=== PATIENT | male | born 1970 | race Caucasian/White ===

== ENCOUNTER 2022-03-28 13:44 | Observation (INO) ==
[2022-03-28] MEDS ORDERED: ASPIRIN 325 MG TABLET PO STA (15:24)
[2022-03-28] MEDS ORDERED: NITROGLYCERIN 2% OINT 1 INCH/GM PACK TOP STA (15:29)
[2022-03-28] MEDS ORDERED: METOPROLOL TARTRATE 5 MG/5 ML VIAL IV STA (15:29)
[2022-03-28] MEDS ORDERED: ENOXAPARIN 100 MG/ML SYRINGE SUBCUT STA (15:29)
[2022-03-28 15:37] LABS: Basophils # 0.1 10*3/uL (0.0-0.2); Basophils % 0.5 % (0.0-0.8); Eosinophils # 0.1 10*3/uL (0.0-0.87); Eosinophils % 1.4 % (0.00-10.9); Hematocrit 52.3 VOL% (42.0-52.0); Hemoglobin 17.8 GM/DL (14.0-18.0); Immature Granulocytes % 0.4 %; Immature Granulocytes Absolute 0.04 #; Lymphocytes % 20.4 % (21.2-54.2); Mean Corpuscular Volume 86.9 FL (87-102); Mean Platelet Volume 11.3 FL (9.6-12.0); Monocytes # 0.8 10*3/uL (0.11-0.8); Neutrophils % 69.3 % (38.7-73.9); Platelet Count 221 T/CUMM (130-400); Red Blood Count 6.02 MC/CUMM (3.8-5.5); Red Cell Distribution Width 13.3 % (9.3-17.3); White Blood Count 9.6 T/CUMM (4-12)
[2022-03-28 15:49] LABS: Albumin 4.1 G/DL (3.4-5.0); Bilirubin,Total 0.8 MG/DL (0.20-1.00); Calcium 8.7 MG/DL (8.5-10.1); Osmolality,Calculated 272.8 MOS/KG (273-304); Potassium 3.8 MMOL/L (3.5-5.1)
[2022-03-28] MEDS ORDERED: NICOTINE 21 MG/24 HR PATCH TRANSDERM PRN (16:55)
[2022-03-28] MEDS ORDERED: ONDANSETRON 4 MG/2 ML VIAL IV PRN (16:55)
[2022-03-28] MEDS ORDERED: ACETAMINOPHEN 325 MG TABLET PO PRN (16:55)
[2022-03-28] MEDS ORDERED: ENOXAPARIN 40 MG/0.4 ML SYRINGE SUBCUT SCH (17:00)
[2022-03-28] MEDS ORDERED: cefTRIAXone 1,000 MG in SODIUM CHLORIDE 0.9% 100 ML IV SCH (17:30)
[2022-03-28] MEDS ORDERED: AZITHROMYCIN INJ 500 MG in SODIUM CHLORIDE 0.9% 250 ML IV SCH (18:00)
[2022-03-28 18:32] LABS: INR 0.9; PT Patient Result 10.4 SECS (10.1-12.1)
[2022-03-29 05:01] LABS: Basophils # 0.1 10*3/uL (0.0-0.2); Basophils % 0.6 % (0.0-0.8); Eosinophils # 0.2 10*3/uL (0.0-0.87); Eosinophils % 1.9 % (0.00-10.9); Hematocrit 47.8 VOL% (42.0-52.0); Hemoglobin 16.2 GM/DL (14.0-18.0); Immature Granulocytes % 0.4 %; Immature Granulocytes Absolute 0.04 #; Lymphocytes # 2.2 10*3/uL (1.4-4.0); Mean Corpuscular HGB Conc 33.9 GM/DL (32-36); Mean Corpuscular Volume 88.5 FL (87-102); Mean Platelet Volume 11.3 FL (9.6-12.0); Monocytes # 1.2 10*3/uL (0.11-0.8); Monocytes % 11.9 % (1.7-12.7); Neutrophils % 63.2 % (38.7-73.9); Platelet Count 195 T/CUMM (130-400); Red Cell Distribution Width 13.4 % (9.3-17.3)
[2022-03-29 05:36] LABS: Albumin 3.4 G/DL (3.4-5.0); Bilirubin,Total 0.4 MG/DL (0.20-1.00); Osmolality,Calculated 279.4 MOS/KG (273-304); Potassium 3.8 MMOL/L (3.5-5.1); Risk Ratio 6.67; Thyroid Stimulating Hormone 3.05 uIU/ml (0.358-3.74); Total Protein 7.1 G/DL (6.4-8.2); VLDL Cholesterol 38.2 MG/DL
[2022-03-29] MEDS ORDERED: ENOXAPARIN 40 MG/0.4 ML SYRINGE SUBCUT SCH (09:00)
[2022-03-29] MEDS: ASPIRIN CHEW 81 MG TABLET PO SCH (09:19)
[2022-03-29] MEDS ORDERED: DIAZEPAM 5 MG TABLET PO ONE (10:30)
[2022-03-29] MEDS ORDERED: DEXTROSE 5% NACL 0.45% 1,000 ML IV SCH (10:30)
[2022-03-29] MEDS ORDERED: diphenhydrAMINE CAP 25 MG CAPSULE PO ONE (10:30)
[2022-03-29] MEDS ORDERED: HEPARIN/NACL 0.9% 2 UNITS/ML 2,000 UNIT/1,000 ML BAG IV ONE (11:54)
[2022-03-29] MEDS ORDERED: VERAPAMIL 5 MG/2 ML VIAL ONE (12:05)
[2022-03-29] MEDS ORDERED: NITROGLYCERIN DRIP 50 MG/250 ML BOTTLE IV ONE (12:05)
[2022-03-29] MEDS ORDERED: fentaNYL 100 MCG/2 ML VIAL ONE (12:53)
[2022-03-29] MEDS ORDERED: MIDAZOLAM 2 MG/2 ML VIAL ONE (12:53)
[2022-03-29] MEDS ORDERED: ENOXAPARIN 60 MG/0.6 ML SYRINGE ONE (13:06)
[2022-03-29] MEDS: ISOSORBIDE MONONITRATE 30 MG TABLET PO SCH (16:32)
[2022-03-29] MEDS ORDERED: lisinopriL 20 MG TABLET PO SCH (17:30)
[2022-03-29] MEDS ORDERED: ATORVASTATIN 40 MG TABLET PO SCH (21:00)
[2022-03-29] MEDS: ATORVASTATIN 40 MG TABLET PO SCH (21:56)
[2022-03-29] MEDS: carvediloL 6.25 MG TABLET PO SCH (21:56)
[2022-03-29] MEDS: ENOXAPARIN 100 MG/ML SYRINGE SUBCUT SCH (21:57)
[2022-03-30 05:00] LABS: Basophils % 0.4 % (0.0-0.8); Eosinophils # 0.1 10*3/uL (0.0-0.87); Eosinophils % 1.2 % (0.00-10.9); Hematocrit 47.1 VOL% (42.0-52.0); Hemoglobin 15.7 GM/DL (14.0-18.0); Immature Granulocytes % 0.4 %; Immature Granulocytes Absolute 0.04 #; Lymphocytes # 2.4 10*3/uL (1.4-4.0); Mean Corpuscular HGB Conc 33.3 GM/DL (32-36); Mean Corpuscular Volume 87.4 FL (87-102); Mean Platelet Volume 11.2 FL (9.6-12.0); Monocytes # 1.2 10*3/uL (0.11-0.8); Monocytes % 11.9 % (1.7-12.7); Neutrophils % 62.1 % (38.7-73.9); Platelet Count 208 T/CUMM (130-400); Red Blood Count 5.39 MC/CUMM (3.8-5.5); Red Cell Distribution Width 13.4 % (9.3-17.3); White Blood Count 10.1 T/CUMM (4-12)
[2022-03-30 05:25] LABS: Calcium 8.7 MG/DL (8.5-10.1); Osmolality,Calculated 273.7 MOS/KG (273-304); Potassium 3.9 MMOL/L (3.5-5.1)
[2022-03-30] MEDS ORDERED: NITROGLYCERIN SL 0.4 MG TABLET SL PRN (08:15)
[2022-03-30] MEDS: carvediloL 6.25 MG TABLET PO SCH ×2 (09:37→21:03)
[2022-03-30] MEDS: ASPIRIN CHEW 81 MG TABLET PO SCH (09:37)
[2022-03-30] MEDS: VALSARTAN 160 MG TABLET PO SCH (09:37)
[2022-03-30] MEDS: ISOSORBIDE MONONITRATE 30 MG TABLET PO SCH (09:37)
[2022-03-30] MEDS: ENOXAPARIN 100 MG/ML SYRINGE SUBCUT SCH ×2 (09:38→21:03)
[2022-03-30] MEDS: SPIRONOLACTONE 25 MG TABLET PO SCH (11:32)
[2022-03-30] MEDS: ATORVASTATIN 40 MG TABLET PO SCH (21:03)
[2022-03-31 04:47] LABS: Basophils # 0.1 10*3/uL (0.0-0.2); Basophils % 0.7 % (0.0-0.8); Eosinophils # 0.3 10*3/uL (0.0-0.87); Hematocrit 49.3 VOL% (42.0-52.0); Hemoglobin 16.7 GM/DL (14.0-18.0); Immature Granulocytes % 0.5 %; Immature Granulocytes Absolute 0.04 #; Lymphocytes # 2.6 10*3/uL (1.4-4.0); Lymphocytes % 29.2 % (21.2-54.2); Mean Corpuscular HGB Conc 33.9 GM/DL (32-36); Mean Corpuscular Volume 87.4 FL (87-102); Mean Platelet Volume 10.7 FL (9.6-12.0); Monocytes % 11.5 % (1.7-12.7); Neutrophils % 55.1 % (38.7-73.9); Platelet Count 198 T/CUMM (130-400); Red Blood Count 5.64 MC/CUMM (3.8-5.5); Red Cell Distribution Width 13.3 % (9.3-17.3); White Blood Count 8.8 T/CUMM (4-12)
[2022-03-31 05:06] LABS: Calcium 9.2 MG/DL (8.5-10.1); Osmolality,Calculated 274.7 MOS/KG (273-304); Potassium 3.8 MMOL/L (3.5-5.1)
[2022-03-31] MEDS: VALSARTAN 160 MG TABLET PO SCH (09:03)
[2022-03-31] MEDS: ASPIRIN CHEW 81 MG TABLET PO SCH (09:03)
[2022-03-31] MEDS: ENOXAPARIN 100 MG/ML SYRINGE SUBCUT SCH ×2 (09:03→20:40)
[2022-03-31] MEDS: SPIRONOLACTONE 25 MG TABLET PO SCH (09:03)
[2022-03-31] MEDS: ISOSORBIDE MONONITRATE 30 MG TABLET PO SCH (09:03)
[2022-03-31] MEDS: carvediloL 6.25 MG TABLET PO SCH (09:03)
[2022-03-31] MEDS: ATORVASTATIN 40 MG TABLET PO SCH (20:39)
[2022-03-31] MEDS: carvediloL 12.5 MG TABLET PO SCH (21:01)
[2022-04-01 06:17] LABS: Basophils # 0.1 10*3/uL (0.0-0.2); Basophils % 0.6 % (0.0-0.8); Eosinophils # 0.3 10*3/uL (0.0-0.87); Eosinophils % 3.3 % (0.00-10.9); Hemoglobin 16.9 GM/DL (14.0-18.0); Immature Granulocytes % 0.3 %; Immature Granulocytes Absolute 0.03 #; Lymphocytes # 3.1 10*3/uL (1.4-4.0); Lymphocytes % 35.2 % (21.2-54.2); Mean Corpuscular HGB Conc 33.8 GM/DL (32-36); Mean Corpuscular Volume 88.5 FL (87-102); Mean Platelet Volume 11.5 FL (9.6-12.0); Monocytes # 0.9 10*3/uL (0.11-0.8); Monocytes % 10.1 % (1.7-12.7); Neutrophils % 50.5 % (38.7-73.9); Platelet Count 221 T/CUMM (130-400); Red Blood Count 5.65 MC/CUMM (3.8-5.5); Red Cell Distribution Width 13.2 % (9.3-17.3); White Blood Count 8.7 T/CUMM (4-12)
[2022-04-01 06:35] LABS: Calcium 8.9 MG/DL (8.5-10.1); Osmolality,Calculated 280.3 MOS/KG (273-304); Potassium 3.7 MMOL/L (3.5-5.1)
[2022-04-01] MEDS: carvediloL 12.5 MG TABLET PO SCH (08:31)
[2022-04-01] MEDS: SPIRONOLACTONE 25 MG TABLET PO SCH (08:31)
[2022-04-01] MEDS: ASPIRIN CHEW 81 MG TABLET PO SCH (08:31)
[2022-04-01] MEDS: VALSARTAN 160 MG TABLET PO SCH (08:31)
[2022-04-01] MEDS: ISOSORBIDE MONONITRATE 30 MG TABLET PO SCH (08:31)
[2022-04-01] MEDS: ENOXAPARIN 100 MG/ML SYRINGE SUBCUT SCH (08:32)
[2022-04-01 11:54] VITALS: BP 138/80
== END 2022-04-01 16:19 | disposition home or self-care (01) ==
LOC: N.EDINP 13:44 → N.ED 13:44 → SUATTDRO 16:55 → N.TELES 18:57
PROVIDERS: ADMIT Internal Medicine; ATTEND Emergency Medicine
PROC: CLCCHCL (ICD-10-PCS; 2022-03-29 13:15)